=== PATIENT | male | born 1970 | race Caucasian/White ===

== ENCOUNTER 2018-12-21 08:24 | Outpatient (CLI) | payer BC ==
--- NOTE | 2018-12-21 09:44 | RAD ---
CHEST 2 VIEWS: Date: 12/21/17 HISTORY: Dyspnea. COMPARISON: 10/12/18. FINDINGS: Heart size is within normal limits. Lungs are clear. No pneumonia, edema, pleural effusion, or other acute process. IMPRESSION: No acute intrathoracic disease. Stable from prior study. POS: [facility]
== END 2018-12-21 08:25 | disposition home or self-care (01) ==
LOC: RAD 08:24
PROVIDERS: ATTEND Internal Medicine Critical Care Medicine
DX: R06.00 Dyspnea, unspecified (principal)
CPT/HCPCS: 71046